=== PATIENT | female | born 1995 | race Caucasian/White ===

== ENCOUNTER → 2023-06-17 15:17 | Outpatient (CLI) | payer OTHER, MEDICAID, SELFPAY | PROVIDERS: Visit Provider Physician Assistant Surgical | DX: J02.9 Acute pharyngitis, unspecified (principal) | CPT/HCPCS: 87880 ==

== ENCOUNTER 2024-04-30 14:48 | Emergency (ER) | payer BC, SELFPAY ==
[2024-04-30 15:08] VITALS: BP 178/92; PULSE 72; RESP 16; TEMP 36.7; O2SAT 98; BMI 41.5
--- NOTE | 2024-04-30 15:16 | EKG_ITS ---
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
--- NOTE | 2024-04-30 15:21 | DI.RAD.S_ITS ---
PROCEDURE: XR CHEST 1V INDICATIONS: chest pain TECHNIQUE: One view of the chest was acquired. COMPARISON: None. FINDINGS: Surgical changes and devices: None. Lungs and pleura: Lungs are clear. No pleural effusions or pneumothorax. Mediastinum: Mediastinal contours appear normal. Heart size is normal. Bones and chest wall: No suspicious bony lesions. Overlying soft tissues appear unremarkable. IMPRESSION: No acute cardiopulmonary abnormality is seen. Dictated by: Javed Persaud M.D. on 04/30/2024 at 14:56 Approved by: Javed Persaud M.D. on 04/30/2024 at 14:57
[2024-04-30 15:35] VITALS: BP 119/77; PULSE 73; RESP 16; O2SAT 98
[2024-04-30 15:43] LABS: Add Manual Diff / Slide Review NO; Basophils Absolute Auto 0 /uL (0-100); Basophils Percent Auto 0.4 % (0-2); Eosinophils Absolute Auto 0 /uL (0-450); Eosinophils Percent Auto 0.5 % (2-4); Hematocrit 40.8 % (36-46); Hemoglobin 13.9 g/dL (12.0-16.0); Lymphocytes Absolute Auto 1500 /uL (1100-4500); Lymphocytes Percent Auto 21.9 % (25-40); Mean Corpuscular HGB Conc 34.1 % (30-36); Mean Corpuscular Hemoglobin 29.4 PG (26-34); Mean Corpuscular Volume 86.1 fL (80-100); Monocytes Absolute Auto 400 /uL (0-900); Neutrophils Absolute Auto 5100 /uL (1500-7000); Neutrophils Percent Auto 72.2 % (50-75); Platelet Count 302 X10^3/uL (150-400); Red Blood Cell Count 4.74 X10^6/uL (4.0-5.2); Red Cell Distribution Width 12.6 % (11.6-14.8)
[2024-04-30 15:54] LABS: Alanine Aminotransferase 26 IU/L (<35); Albumin 4.4 g/dL (3.5-5.0); Albumin Globulin Ratio 1.3 (1.0-2.8); Alkaline Phosphatase 82 U/L (38-126); Aspartate Aminotransferase 27 IU/L (14-36); BUN Creatinine Ratio 10.9 (6-22); Bilirubin Total 0.5 mg/dL (0.2-1.3); Blood Urea Nitrogen 7 mg/dL (7-17); Calcium 9.4 mg/dL (8.4-10.2); Carbon Dioxide 27 mmol/L (22-32); Chloride 105 mmol/L (98-107); Estimated Glomerular Filt Rate > 60 mL/min (>60); Globulin 3.4 g/dL (1.7-4.1); Glucose 93 mg/dL (70-100); HEMOLYSIS < 15 (0-50); Potassium 3.8 mmol/L (3.4-5.1); Sodium 140 mmol/L (137-145); Total Protein 7.8 g/dL (6.3-8.2)
[2024-04-30 16:00] VITALS: BP 112/66; PULSE 65; RESP 16; TEMP 36.6; O2SAT 100
--- NOTE | 2024-04-30 16:04 | ED.CHESTPAIN ---
HPI - Chest Pain General Chief Complaint: Chest Pain Stated Complaint: chest px Time Seen by Provider: 04/30/24 15:21 Source: patient Mode of arrival: Ambulatory History of Present Illness HPI narrative: 28-year-old female with no significant past medical history presents with intermittent migrating chest pains. States that she was being followed by lightheadedness and palpitations by her primary care doctor. She mailed off a Holter monitor today but has not gotten the results of her monitoring. She states that she was told by the office that if she experiences chest pain she should come to the ER. Pain is intermittent, comes and goes, she can not identify what makes the pain come or go. Denies family history of heart disease. Did endorse travel from [place] to [facility] 2 weeks ago. Related Data Home Medications Medication Instructions Recorded Confirmed etonogestrel 68 mg subdermal subdermal 06/17/23 06/17/23 implant (Nexplanon) Allergies Allergy/AdvReac Type Severity Reaction Status Date / Time No Known Drug Allergies Allergy Verified 04/30/24 15:08 Patient History Social History Smoking Status: Never smoker Smoking Status: Never smoker Exam Initial Vital Signs Initial Vital Signs: Vital Signs Temperature 98.1 F 04/30/24 15:08 Pulse Rate 72 04/30/24 15:08 Respiratory Rate 16 04/30/24 15:08 Blood Pressure 178/92 H 04/30/24 15:08 Pulse Oximetry 98 04/30/24 15:08 Oxygen Delivery Method Room Air 04/30/24 15:08 Const: Awake, alert, no acute distress, nontoxic appearing Cardiac: regular rate, regular rhythm RESP: unlabored, clear bilaterally, no wheezing Skin: Warm, Dry, intact, no rashes Neuro: AO x3, CN II-XII grossly intact, moves all extremities Course Orders Ordered: ED Orders 04/30/24 15:16 EKG-12 Lead Stat 04/30/24 15:21 Chest [XR chest 1V] Stat 04/30/24 15:30 CBC Auto Diff [Complete Blood Count AUTO DIFF] Stat CMP [Comprehensive Metabolic Panel] Stat D Dimer Stat Trop I [Troponin I] Stat Vital Signs Vital signs: Vital Signs - 8 hr 04/30/24 15:08 04/30/24 15:35 04/30/24 16:00 Temperature 98.1 F 98 F Pulse Rate 72 73 65 Respiratory Rate 16 16 16 Blood Pressure 178/92 H 119/77 112/66 Pulse Oximetry 98 98 100 Oxygen Delivery Method Room Air Room Air Room Air 04/30/24 16:30 04/30/24 17:00 04/30/24 17:20 Temperature Pulse Rate 63 74 78 Respiratory Rate 19 18 18 Blood Pressure 116/65 116/64 135/79 Pulse Oximetry 100 99 100 Oxygen Delivery Method Room Air Room Air Room Air MDM - Chest Pain Differential Diagnosis Differential diagnosis: Likely atypical chest pain, costochondritis and chest pain Lab Data 04/30/24 15:30 04/30/24 15:30 Labs: Lab Results 04/30/24 Range/Units 15:30 WBC 7.0 (4.5-11.0) X10^3/uL RBC 4.74 (4.0-5.2) X10^6/uL Hgb 13.9 (12.0-16.0) g/dL Hct 40.8 (36-46) % MCV 86.1 (80-100) fL MCH 29.4 (26-34) PG MCHC 34.1 (30-36) % RDW 12.6 (11.6-14.8) % Plt Count 302 (150-400) X10^3/uL Neut % (Auto) 72.2 (50-75) % Lymph % (Auto) 21.9 L (25-40) % [place] % (Auto) 5.0 (3-14) % Eos % (Auto) 0.5 L (2-4) % Baso % (Auto) 0.4 (0-2) % Neut # (Auto) 5100 (7149-8766) /uL Lymph # (Auto) 1500 (9525-2641) /uL [place] # (Auto) 400 (0-900) /uL Eos # (Auto) 0 (0-450) /uL Baso # (Auto) 0 (0-100) /uL D-Dimer 309 (<500) ng/ml Sodium 140 (137-145) mmol/L Potassium 3.8 (3.4-5.1) mmol/L Chloride 105 (98-107) mmol/L Carbon Dioxide 27 (22-32) mmol/L BUN 7 (7-17) mg/dL Creatinine 0.64 (0.52-1.04) mg/dL Estimated GFR > 60 (>60) mL/min BUN/Creatinine Ratio 10.9 (6-22) Glucose 93 (70-100) mg/dL Calcium 9.4 (8.4-10.2) mg/dL Total Bilirubin 0.5 (0.2-1.3) mg/dL AST 27 (14-36) IU/L ALT 26 (<35) IU/L Alkaline Phosphatase 82 (38-126) U/L Troponin I < 0.012 (0.01-0.034) ng/mL Total Protein 7.8 (6.3-8.2) g/dL Albumin 4.4 (3.5-5.0) g/dL Globulin 3.4 (1.7-4.1) g/dL Albumin/Globulin Ratio 1.3 (1.0-2.8) Imaging Data Chest x-ray: Radiologist's Impression: PROCEDURE: XR CHEST 1V INDICATIONS: chest pain TECHNIQUE: One view of the chest was acquired. COMPARISON: None. FINDINGS: Surgical changes and devices: None. Lungs and pleura: Lungs are clear. No pleural effusions or pneumothorax. Mediastinum: Mediastinal contours appear normal. Heart size is normal. Bones and chest wall: No suspicious bony lesions. Overlying soft tissues appear unremarkable. IMPRESSION: No acute cardiopulmonary abnormality is seen. Dictated by: Javed Persaud M.D. on 04/30/2024 at 14:56 Approved by: Javed Persaud M.D. on 04/30/2024 at 14:57 ECG Data Interpretation: Normal sinus rhythm at 67 beats per minute. Normal ID, no ST T wave changes MDM Narrative Medical decision making narrative: Well-appearing patient with intermittent chest pains. Exam unremarkable. No significant risk factors other than BMI for heart disease. Heart score technically 1 based on BMI risk factor. EKG nonischemic. Laboratory work reviewed, unremarkable. Chest x-ray negative for acute findings. D-dimer not elevated. Patient informed of lab and imaging findings. Reassuring findings here today. She was counseled on the importance of following up with her primary care doctor for her Holter monitoring results. ED return precautions discussed. Discharge Plan Departure Patient Disposition: Home Clinical Impression: Atypical chest pain Instructions: DI for Atypical Chest Pain Activity Restrictions/Additional Instructions: Your EKG, blood work, and chest x-ray were all normal. I do not know the cause of your chest pains, but there is no sign of blood clots, heart attack, or other rhythm abnormalities here. Try Tylenol and ibuprofen and antacids to see if this helps her symptoms at home. Follow up with your primary care doctor to follow up the results of your Holter monitoring. If you notice any new or worsening symptoms please feel free to return to the ER for repeat evaluation. Prescriptions: No Action Nexplanon 68 mg implant subdermal Referrals: Miscellaneous,Doctor, MD [Primary Care Provider] - Stand Alone Forms: Patient Portal/API/Survey
[2024-04-30 16:05] LABS: Troponin I < 0.012 ng/mL (0.01-0.034)
[2024-04-30 16:30] VITALS: BP 116/65; PULSE 63; RESP 19; O2SAT 100
[2024-04-30 16:56] LABS: D Dimer 309 ng/ml (<500)
[2024-04-30 17:00] VITALS: BP 116/64; PULSE 74; RESP 18; O2SAT 99
[2024-04-30 17:20] VITALS: BP 135/79; PULSE 78; RESP 18; O2SAT 100
== END 2024-04-30 17:20 | disposition home or self-care (01) ==
PROVIDERS: Emergency Provider Emergency Medicine
DX: R07.89 Other chest pain (principal); R42 Dizziness and giddiness; R00.2 Palpitations
CPT/HCPCS: 36415; 71045; 80053; 84484; 85025; 85379; 93005; 99284

== ENCOUNTER → 2024-09-13 10:25 | Outpatient (CLI) | payer OTHER, SELFPAY ==
[2024-09-13 12:09] LABS: Add Manual Diff / Slide Review NO; Basophils Absolute Auto 0 /uL (0-100); Basophils Percent Auto 0.3 % (0-2); Eosinophils Absolute Auto 0 /uL (0-450); Eosinophils Percent Auto 0.4 % (2-4); Hemoglobin 13.9 g/dL (12.0-16.0); Lymphocytes Absolute Auto 1400 /uL (1100-4500); Lymphocytes Percent Auto 21.2 % (25-40); Mean Corpuscular HGB Conc 34.7 % (30-36); Mean Corpuscular Hemoglobin 29.9 PG (26-34); Mean Corpuscular Volume 86.2 fL (80-100); Monocytes Absolute Auto 300 /uL (0-900); Monocytes Percent Auto 4.8 % (3-14); Neutrophils Absolute Auto 5000 /uL (1500-7000); Neutrophils Percent Auto 73.3 % (50-75); Platelet Count 246 X10^3/uL (150-400); Red Blood Cell Count 4.64 X10^6/uL (4.0-5.2); Red Cell Distribution Width 12.6 % (11.6-14.8); White Blood Cell Count 6.8 X10^3/uL (4.5-11.0)
[2024-09-13 12:18] LABS: Hemoglobin A1C% w Est Avg Glu 4.9 % (4.0-6.0)
[2024-09-13 12:25] LABS: Alanine Aminotransferase 24 IU/L (<35); Albumin 4.2 g/dL (3.5-5.0); Albumin Globulin Ratio 1.4 (1.0-2.8); Alkaline Phosphatase 72 U/L (38-126); Aspartate Aminotransferase 26 IU/L (14-36); BUN Creatinine Ratio 6.3 (6-22); Bilirubin Total 0.6 mg/dL (0.2-1.3); Blood Urea Nitrogen 4 mg/dL (7-17); Calcium 8.9 mg/dL (8.4-10.2); Carbon Dioxide 26 mmol/L (22-32); Chloride 104 mmol/L (98-107); Cholesterol 155 mg/dL (140-199); Estimated Glomerular Filt Rate > 60 mL/min (>60); Globulin 2.9 g/dL (1.7-4.1); Glucose 96 mg/dL (70-99); HDL Cholesterol 40 mg/dL (40-60); HEMOLYSIS < 15 (0-50); LDL Cholesterol Calculated 95 mg/dL (<100); Potassium 3.8 mmol/L (3.4-5.1); Sodium 138 mmol/L (137-145); Total Protein 7.1 g/dL (6.3-8.2); Triglycerides 99 mg/dL (35-150)
[2024-09-13 12:59] LABS: TSH w/ Reflex to FT4 1.16 uIU/mL (0.47-4.68)
--- NOTE | 2024-09-13 14:00 | DI.MRI.S_ITS ---
PROCEDURE: MR HEAD/BRAIN WO CON INDICATIONS: Persistant headaches TECHNIQUE: Noncontrast axial T1 spin echo, axial T2 fast spin echo, sagittal and axial FLAIR, coronal T2 fast spin echo, axial gradient echo, axial diffusion and ADC through the brain. COMPARISON: None. FINDINGS: Image quality: Excellent. CSF Spaces: Basal cisterns are patent. No extra-axial fluid collections. Ventricles are normal in size and shape. Brain: No intracranial masses or hemorrhage. Morales/white matter interface is normal. Brainstem appears normal. Diffusion-weighted images demonstrate no acute infarct. No chronic ischemic insults. Normal intravascular flow voids are present. Skull and face: Calvarium has normal marrow signal. Orbits appear normal. Sinuses: Sinuses and mastoids are clear. IMPRESSION: No intracranial disease process. No abnormal intracranial mass or mass effect. No intracranial hemorrhage. Dictated by: Shayla Sierra MD, PhD on 09/13/2024 at 11:25 Approved by: Shayla Sierra MD, PhD on 09/13/2024 at 11:26
== END ==
LOC: MRI 10:27
PROVIDERS: PCP Family Medicine; Referring Provider Family Medicine; Visit Provider Family Medicine
DX: R51.9 Headache, unspecified (principal); E28.2 Polycystic ovarian syndrome; R00.2 Palpitations; F41.1 Generalized anxiety disorder; F32.9 Major depressive disorder, single episode, unspecified
CPT/HCPCS: 36415; 70551; 80053; 80061; 83036; 84443; 85025